=== PATIENT | female | born 1990 | race Caucasian/White ===

== ENCOUNTER 2017-04-25 12:35 | Emergency (ER) | payer MEDICAID, OTHER ==
[~2017-04-25] VITALS: Ht 152.4 cm; Wt 58.2 kg
[2017-04-25] MEDS ORDERED: KETOROLAC TROMETHAMINE 60 MG/2 ML VIAL IM ONE (15:00)
[2017-04-25 15:56] LABS: BASOPHILS # (AUTO) 0.03 K/uL (0.00-0.20); BASOPHILS % (AUTO) 0.7 % (0.0-2.0); EOSINOPHILS # (AUTO) 0.18 K/uL (0.00-0.70); EOSINOPHILS % (AUTO) 3.48 % (1.0-6.0); HEMATOCRIT 42.5 % (36-46); HEMOGLOBIN 14.3 g/dL (12.0-16.0); MEAN CORPUSCULAR HEMOGLOBIN 30.6 pg (26.0-34.0); MEAN CORPUSCULAR HGB CONC 33.6 G/dL (31.0-37.0); MEAN CORPUSCULAR VOLUME 91 fL (80-100); MONOCYTES # (AUTO) 0.5 K/uL (0.1-1.0); MONOCYTES % (AUTO) 9.3 % (2.0-9.0); NEUTROPHILS # (AUTO) 2.4 K/uL (1.8-7.7); NEUTROPHILS % (AUTO) 47.6 % (40.0-70.0); PLATELET COUNT (AUTO) 213 K/uL (150-450); RED BLOOD CELL COUNT(AUTO) 4.65 MIL/uL (4.00-5.20); RED CELL DISTRIBUTION WIDTH 12.5 % (11.5-14.5); WHITE BLOOD COUNT (AUTO) 5.1 K/uL (4.5-11.0)
[2017-04-25 16:10] LABS: ANION GAP 7 mmol/L (8-16); CALCIUM, TOTAL 9.1 mg/dL (8.8-10.5); CARBON DIOXIDE 28 mmol/L (22-29); CHLORIDE 106 mmol/L (98-107); CREATININE 0.84 mg/dL (0.60-1.30); GLOMERULAR FILTR. RATE CALC > 60 mL/min (>60); POTASSIUM 3.8 mmol/L (3.5-5.1); SODIUM SERUM 141 mmol/L (136-145); UREA NITROGEN, BLOOD 14 mg/dL (7-18)
[2017-04-25 16:16] LABS: ALANINE AMINOTRANSFERASE 30 U/L (12-78); ASPARTATE AMINOTRANSFERASE 21 U/L (15-37); BILIRUBIN,TOTAL 0.4 mg/dL (0.1-1.0); TOTAL PROTEIN, SERUM 7.8 g/dL (6.4-8.2)
[2017-04-25 17:00] VITALS: BP 138/81
== END 2017-04-25 17:05 | disposition home or self-care (01) ==
LOC: EMS 12:37
DX: S43.401A Unspecified sprain of right shoulder joint, initial encounter (principal); F12.10 Cannabis abuse, uncomplicated; R42 Dizziness and giddiness; J45.909 Unspecified asthma, uncomplicated; X58.XXXA Exposure to other specified factors, initial encounter; Y93.89 Activity, other specified; Y92.39 Other specified sports and athletic area as the place of occurrence of the external cause; Y99.8 Other external cause status
CPT/HCPCS: 93005; 99285; J1885

== ENCOUNTER 2018-10-04 13:00 | Emergency (ER) | payer OTHER ==
[~2018-10-04] VITALS: Ht 152.4 cm; Wt 70.0 kg
[2018-10-04 14:05] LABS: BILIRUBIN,URINE NEGATIVE (NEGATIVE); GLUCOSE, URINE (UA) NEGATIVE (NEGATIVE); KETONES,URINE NEGATIVE (NEGATIVE); LEUKOCYTE ESTERASE ,URINE NEGATIVE (NEGATIVE); NITRATE,URINE NEGATIVE (NEGATIVE); OCCULT BLOOD,URINE NEGATIVE (NEGATIVE); PH,URINE 5.5 (5.0-8.0); PROTEIN,URINE NEGATIVE (NEGATIVE); UROBILINOGEN,URINE 0.2 mg/dL (<=1.0)
[2018-10-04 14:11] LABS: APPEARANCE,URINE CLEAR (CLEAR)
[2018-10-04 14:18] LABS: BACTERIA,URINE Few /HPF (None Seen); RBC,URINE None Seen /HPF (0-2); SQUAMOUS EPITHELIAL CELL,UR Many /LPF (None Seen); WBC,URINE 0-2 /HPF (0-5)
[2018-10-04 15:42] LABS: RAPID GROUP A STREP POSITIVE (NEGATIVE)
[2018-10-04 16:02] LABS: INFLUENZA TYPE A NEGATIVE FOR TYPE A (NEGATIVE); INFLUENZA TYPE B NEGATIVE FOR TYPE B (NEGATIVE)
[2018-10-04] MEDS ORDERED: DEXAMETHASONE SOD PHOS 4 MG/ML 5 ML VIAL IM ONE (17:15)
[2018-10-04] MEDS ORDERED: PENICILLIN G BENZATHINE LA 1,200,000 UNITS/2 ML SYRINGE IM ONE (17:15)
[2018-10-04] MEDS ORDERED: ACETAMINOPHEN 500 MG TABLET PO ONE (17:15)
[2018-10-04 18:28] VITALS: BP 118/74
== END 2018-10-04 19:14 | disposition home or self-care (01) ==
LOC: EMS 13:02
DX: J02.0 Streptococcal pharyngitis (principal); J45.909 Unspecified asthma, uncomplicated; F41.9 Anxiety disorder, unspecified; F32.9 Major depressive disorder, single episode, unspecified; F12.90 Cannabis use, unspecified, uncomplicated
CPT/HCPCS: 81001; 84703; 87430; 87804; 96372; 99283; J0561; J1100